=== PATIENT | male | born 1935 | race Caucasian/White ===

== ENCOUNTER → 2016-10-22 | Outpatient (REF) | payer MEDICARE, OTHER | LOC: M SFHCCLAY 10:30 | PROVIDERS: ATTEND Family Medicine | DX: E78.2 Mixed hyperlipidemia (principal); E11.21 Type 2 diabetes mellitus with diabetic nephropathy; Z53.8 Procedure and treatment not carried out for other reasons ==

== ENCOUNTER 2017-03-18 19:31 | Inpatient (IN) | payer MEDICARE, OTHER ==
[~2017-03-18] VITALS: Ht 175.3 cm; Wt 77.1 kg
[2017-03-18] MEDS ORDERED: NS 1,000 ML IV ONE (20:30)
[2017-03-18] MEDS ORDERED: ONDANSETRON 4MG/2ML VIAL (J2405) IV ONE (20:30)
[2017-03-18 20:31] LABS: BASO % 0.8 % (0.0-1.0); EOS # 0.1 K/mm3 (0.0-0.50); EOS % 2.9 % (0.0-3.0); LARGE UNSTAINED CELL # 0.1 K/mm3 (0.0-0.4); LARGE UNSTAINED CELL % 2.1 % (0.0-4.0); LYMPH # 0.9 K/mm3 (1.5-4.5); LYMPH % 27.3 % (24.0-44.0); MEAN CORPUSCULAR HEMOGLOBIN 30.2 pg (27.0-33.0); MEAN CORPUSCULAR HGB CONC 33.1 g/dl (32.0-36.5); MEAN CORPUSCULAR VOLUME 91.3 fl (80.0-96.0); MONO # 0.3 K/mm3 (0.0-0.8); MONO % 8.7 % (0.0-5.0); NEUTROPHILS # 1.9 K/mm3 (1.8-7.7); NEUTROPHILS % 58.1 % (36.0-66.0); PLATELET COUNT, AUTOMATED 171 k/mm3 (150-450); RED CELL DISTRIBUTION WIDTH 13.4 % (11.5-14.5); WHITE BLOOD COUNT 3.2 K/mm3 (4.0-10.0)
[2017-03-18 20:32] LABS: INR 1.06
[2017-03-18 20:43] LABS: ALBUMIN 3.4 GM/DL (3.2-5.2); ALBUMIN/GLOBULIN RATIO 1.26 (1.00-1.93); BILIRUBIN,DIRECT 0.1 MG/DL (0.0-0.2); BILIRUBIN,TOTAL 0.4 MG/DL (0.2-1.0); CALCIUM LEVEL 8.4 MG/DL (8.8-10.2); CREATININE FOR GFR 1.65 MG/DL (0.70-1.30); GLOMERULAR FILTRATION RATE 42.7 (>35); POTASSIUM SERUM 3.8 MEQ/L (3.5-5.1); TOTAL PROTEIN 6.1 GM/DL (6.4-8.2)
--- NOTE | 2017-03-18 21:00 | REPUSA ---
CLINICAL HISTORY: CVA. TECHNIQUE: Multiple axial CT images were obtained through the brain without IV contrast material. COMMENTS: There is normal configuration of sella turcica. There are no intra or extra-axial collections. There is no mass effect or midline shift. There is no evidence of hematoma formation. No hydrocephalus is p resent. The ventricles are symmetrical. No abnormal calcifications are present. There is diffuse age-appropriate cerebellar and cerebral atrophy with proportionally dilated ventricl es and cortical sulci. There are bilateral confluent periventricular and subcortical white matter hypolucencies compatible w ith severe chronic microvascular disease. Otherwise, no significant focal abnormalities are seen either in the posterior fossa or supratentoria l compartment. IMPRESSION: 1. Cerebellar and cerebral atrophy. 2. Chronic microvascular disease. 3. No evidence of acute intracranial pathology. Thank you for your kind referral of this patient.
[2017-03-18] MEDS ORDERED: LISI40TAB PO (21:12)
[2017-03-18] MEDS ORDERED: METF500T PO (21:12)
[2017-03-18] MEDS ORDERED: HYDR12.55 PO (21:12)
[2017-03-18] MEDS ORDERED: ASPI325T PO (21:12)
--- NOTE | 2017-03-18 22:12 | REP ---
Portable chest, single AP view, patient sitting: There are no comparisons. There are no focal infiltrates or effusions. The right hemidiaphragm is mildly elevated compared to the left. Cardiac size is slightly magnified by positioning. Lung hernandez otherwise clear. The elle, mediastinum, and bony thorax unremarkable. Impression: There are no acute cardiopulmonary findings. Signed by Erick Dickey MD 03/18/2017 10:04 P
--- NOTE | 2017-03-19 02:50 | REPUSA ---
CLINICAL HISTORY: Suspected stroke. TECHNIQUE: Three dimensional [id number] angiography is performed of the [place]. The diane dy was performed without IV contrast agent. FINDINGS: The supraclinoid portions of the internal carotid arteries are of normal shape. The normal bifurcation is seen. The middle cerebral arteries are unremarkable in appearance. The posterior circu lation is visualized and shows no evidence of occlusion or aneurysm formation. The basilar tip is see n and shows no aneurysm formation. There is no evidence of beading to suggest vasculitis. IMPRESSION: MRA of the [place] is within normal limits. Thank you for your kind referral of this patient.
--- NOTE | 2017-03-19 02:50 | REPUSA ---
CLINICAL HISTORY: Suspected cerebral ischemia. TECHNIQUE: MRI of the brain was performed utilizing multiple sequences in axial, coronal and sagittal planes without IV contrast material. COMMENTS: Foci of restricted diffusion are noted in the right cerebellar hemisphere suggestive of acute/subacut e ischemia. The sella and parasellar region are unremarkable in appearance. The corpus callosum and cerebellar to nsils are of normal configuration and position. There are no intra or extra- axial collections. There is no mass effect or midline shift. There is no evidence of hematoma formation. There is no hydrocep halus. The visualized arterial structures demonstrate normal-appearing flow voids. The seventh and eighth ne rve bundles are visualized and are unremarkable in appearance. Numerous confluent foci of T2/FLAIR hyperintensity are noted in the bilateral periventricular and sub cortical white matter compatible with severe chronic white matter ischemic changes. Generalized proportionate dilatation of ventricles and sulci is present compatible with age-appropria te parenchymal atrophy. IMPRESSION: 1. Foci of restricted diffusion are noted in the right cerebellar hemisphere suggestive of acute/suba cute ischemia. No associated midline shift or brain herniation. 2. Generalized age-appropriate parenchymal atrophy. 3. Severe chronic white matter microvascular ischemic changes. Thank you for your kind referral of this patient.
[2017-03-19] MEDS ORDERED: TRIC145T PO (03:27)
[2017-03-19] MEDS ORDERED: DOXA1TAB73 PO (03:27)
[2017-03-19] MEDS ORDERED: FISH1000 PO (03:27)
[2017-03-19] MEDS ORDERED: HYDR25TAB PO (03:30)
[2017-03-19] MEDS ORDERED: VITA100066 PO (03:42)
[2017-03-19] MEDS ORDERED: GLUCAGON FOR INJ 1 MG VIAL (J1610) SC PRN (04:15)
[2017-03-19] MEDS ORDERED: DEXTROSE 50% 50 ML SYRINGE IV PRN (04:15)
[2017-03-19] MEDS ORDERED: GLUCOSE 4 GM CHEW TABLET PO PRN (04:15)
[2017-03-19] MEDS: D5W/0.45% SODIUM CHLORIDE 1,000 ML IV SCH ×2 (04:44→13:36)
--- NOTE | 2017-03-19 05:43 | HPE ---
DATE OF ADMISSION: 03/19/2017 PRIMARY CARE PHYSICIAN: Dr. Gusman. CHIEF COMPLAINT: Left-sided weakness, dysarthria. HISTORY OF PRESENT ILLNESS: The patient is an 82-year-old man who lives alone. He was going out for dinner and drinks with his daughter who is an outpatient nurse manager advertising for [employer]. When they arrived at their destination around 6:45 p.m., when exiting the car she noticed that he had been having difficulty with his speech and when standing he was leaning to his side and had left-sided weakness. She also appreciated a left-sided facial droop. It was at that point that she called the ambulance and had him present to the emergency room. At the present time, she tells me that his speech is improving, but he is still having word-finding difficulty and difficulty expressing himself, but said his weakness has resolved and his droop is resolved. At the present time the patient says he feels fine. He says he just came to get checked out and would actually like to go home. Denies chest pain shortness of breath, fevers, chills, nausea, vomiting or diarrhea, or any weakness at this time. However, he does stutter through his words and does have difficulty finding them. PAST MEDICAL HISTORY: 1. Hypertension. 2. Chronic kidney disease. 3. Type 2 diabetes. 4. Hypertension. 5. Dyslipidemia. ALLERGIES: 1. STATINS (ATORVASTATIN, PRAVASTATIN, SIMVASTATIN) - myalgias. 2. NIACIN - myalgias. 3. PENICILLIN and CROSS REACTORS - hives. PAST SURGICAL HISTORY: 1. Appendectomy. 2. Colonoscopy. SOCIAL HISTORY: He lives alone and is independent with activities of daily living (ADLs), and his children visit him in the evenings almost every night, his daughter and sons. FAMILY HISTORY: Noncontributory. REVIEW OF SYSTEMS: Negative other than in history of present illness (HPI). HOME MEDICATIONS: - aspirin 325 mg daily - metformin 500 mg daily - vitamin D 2000 units daily - Tricor 145 mg daily - fish oil 1000 mcg daily - hydrochlorothiazide 25 mg daily - lisinopril 40 mg daily PHYSICAL EXAMINATION: VITAL SIGNS: Temperature 97.8, pulse 62, respiratory rate 20, blood pressure 115/67, oxygen saturation 96% on room air. GENERAL: He is a disheveled, elderly man sitting up in bed. He does not appear to be in any acute distress, but he does have difficulty with word finding. HEENT: He has some conjunctival hemorrhage on the right. Cranial nerves II through XII are grossly intact. He has moist mucous membranes. No elevation of central venous pressure (CVP). CARDIOVASCULAR: S1, S2, appears regular. No distant heart sounds appreciated. RESPIRATORY: Exam is completely clear. ABDOMEN: Exam is benign. EXTREMITIES: No clubbing, cyanosis or edema. NEUROLOGIC: He has 5/5 strength, and neuro exam other than his word finding, appears to be nonfocal. LABORATORY DATA: WBC 3.2, hemoglobin 11.9, hematocrit 35.9, platelet count 171. INR 1.0. Chemistry panel: Sodium 138, potassium 3.8, chloride 104, bicarbonate 24, BUN 24, creatinine 1.6, baseline approximately 1.6. IMAGING: The patient had a CT scan of the head which revealed cerebellar and cerebral atrophy, chronic microvascular disease. No evidence of acute intracranial pathology. He had a chest x-ray that revealed no acute cardiopulmonary findings. MRA of the brain revealed [place] within normal limits. MRI of the brain revealed foci restricted diffusion are noted in the right cerebellar hemisphere, suggestive of acute and subacute ischemia. No associated midline shift or brain herniation. ASSESSMENT AND PLAN: This is an 82-year-old man with an acute right cerebellar cerebrovascular accident (CVA). 1. Acute right cerebellar CVA. The patient's symptoms do appear to be improving quite rapidly at the present time. He normally takes aspirin and Tricor. He may benefit from a neurology consultation, and if they agree, consider switching to Plavix. The patient, unfortunately, is unable to tolerate statins. He is on Tricor. We will check a lipid panel, hemoglobin A1c, and thyroid stimulating hormone (TSH). He will be admitted to the progressive care unit (PCU) for telemetry to rule out any arrhythmias, and an echocardiogram will be completed to rule out any other etiology for embolic phenomenon. We will also check a carotid Duplex. He will receive neurologic checks as well. Given that he is difficulty with word finding and had a facial droop, for the time being I will keep him nothing by mouth and place physical therapy (PT), occupational therapy (OT), and speech therapy evaluations. 2. Hypertension. Will continue hydrochlorothiazide and lisinopril. He is not hypertensive at this time. 3. Anemia. Appears to be somewhat chronic. We will send iron studies. 4. Type 2 diabetes. Will hold his metformin and place him on sliding scale. 5. Vitamin D deficiency. Continue with supplementation. 6. Deep venous thrombosis (DVT) prophylaxis. The patient will be heparin. DISPOSITION: The patient is admitted to the progressive care unit to Dr. De Anda's service, who will continue following the patient at 7 a.m. Consider neurology consultation if felt to be indicated.
[2017-03-19] MEDS: HumaLOG INSULIN (NovoLOG) PER UNIT SC SCH ×3 (05:50→18:00)
--- NOTE | 2017-03-19 05:50 | REPUSA ---
CLINICAL HISTORY: Stroke. TECHNIQUE: Realtime sonographic images were obtained in multiple projections. COMMENTS: Realtime examination demonstrates bilateral atheromatous plaques of the common carotid arteries exten ding to the proximal aspect of the internal and external carotid arteries. Normal peak systolic velocities. Antegrade flow in the vertebral arteries. Arrhythmia was noted. IMPRESSION: Atherosclerosis. No evidence of hemodynamically significant stenosis. Thank you for your kind referral of this patient.
[2017-03-19 06:30] VITALS: BP 119/61
[2017-03-19 06:54] LABS: MEAN CORPUSCULAR HEMOGLOBIN 30.6 pg (27.0-33.0); MEAN CORPUSCULAR HGB CONC 33.9 g/dl (32.0-36.5); MEAN CORPUSCULAR VOLUME 90.2 fl (80.0-96.0); RED CELL DISTRIBUTION WIDTH 13.7 % (11.5-14.5); WHITE BLOOD COUNT 4.5 K/mm3 (4.0-10.0)
[2017-03-19 07:18] LABS: CALCIUM LEVEL 8.2 MG/DL (8.8-10.2); CREATININE FOR GFR 1.59 MG/DL (0.70-1.30); GLOMERULAR FILTRATION RATE 44.6 (>35); POTASSIUM SERUM 3.8 MEQ/L (3.5-5.1)
[2017-03-19 08:00] VITALS: BP 111/60
[2017-03-19] MEDS: HEPARIN SOD (PORCINE) 5000 UNITS/ML VIAL SC SCH ×2 (09:00→21:47)
--- NOTE | 2017-03-19 09:04 | ECGEPIP ---
Stationary ECG Study [facility] - ED Test Date: 2017-03-18 Pat Name: YAKOV WALLS Department: Room: [place] [address] Gender: M Portrait Artist: natalia : 1935 Requested By: THOMAS Reeder Order Number: [id number] Reading MD: Lizzie House Measurements Intervals [place] Rate: 59 P: RI: 0 QRS: -59 QRSD: 176 T: 21 QT: 471 QTc: 467 Interpretive Statements SINUS RHYTHM RIGHT BUNDLE BRANCH BLOCK LEFT ANTERIOR FASCICULAR BLOCK POSSIBLE ANTERIOR MYOCARDIAL INFARCTION, OF INDETERMINATE AGE NO PRIOR FOR COMPARISON Electronically Signed On 03-19-2017 9:04:40 EDT by Lizzie House
[2017-03-19] MEDS: VITAMIN D 1,000 INTERNATIONAL UNITS TABLET PO SCH (09:08)
[2017-03-19] MEDS: OMEGA-3 1050MG CAPSULE PO SCH (09:08)
[2017-03-19] MEDS: hydroCHLOROthiazide 25 MG TAB PO SCH (09:08)
[2017-03-19] MEDS: ASPIRIN 325 MG TAB PO SCH (09:08)
[2017-03-19] MEDS: LISINOPRIL 40 MG TAB PO SCH (09:08)
[2017-03-19] MEDS: FENOFIBRATE 145 MG TAB (TRICOR) PO SCH (09:08)
[2017-03-19 12:00] VITALS: BP 134/66
[2017-03-19 13:29] VITALS: BP 120/68
[2017-03-19 16:00] VITALS: BP 106/51
[2017-03-19 20:18] VITALS: BP 114/58
[2017-03-20 00:40] VITALS: BP 127/70
[2017-03-20] MEDS: D5W/0.45% SODIUM CHLORIDE 1,000 ML IV SCH (05:08)
[2017-03-20 05:09] VITALS: BP 120/72
[2017-03-20 05:53] LABS: MEAN CORPUSCULAR HEMOGLOBIN 30.1 pg (27.0-33.0); MEAN CORPUSCULAR HGB CONC 33.5 g/dl (32.0-36.5); MEAN CORPUSCULAR VOLUME 89.9 fl (80.0-96.0); RED CELL DISTRIBUTION WIDTH 13.5 % (11.5-14.5); WHITE BLOOD COUNT 3.6 K/mm3 (4.0-10.0)
[2017-03-20 06:06] LABS: CALCIUM LEVEL 8.6 MG/DL (8.8-10.2); CREATININE FOR GFR 1.77 MG/DL (0.70-1.30); GLOMERULAR FILTRATION RATE 39.4 (>35)
[2017-03-20 07:30] VITALS: BP 130/76
[2017-03-20] MEDS ORDERED: HumaLOG INSULIN (NovoLOG) PER UNIT SC SCH ×2 (07:30→21:00)
[2017-03-20] MEDS: HEPARIN SOD (PORCINE) 5000 UNITS/ML VIAL SC SCH (08:43)
[2017-03-20] MEDS: hydroCHLOROthiazide 25 MG TAB PO SCH (08:44)
[2017-03-20] MEDS: ASPIRIN 325 MG TAB PO SCH (08:44)
[2017-03-20] MEDS: VITAMIN D 1,000 INTERNATIONAL UNITS TABLET PO SCH (08:44)
[2017-03-20] MEDS: FENOFIBRATE 145 MG TAB (TRICOR) PO SCH (08:44)
[2017-03-20] MEDS: LISINOPRIL 40 MG TAB PO SCH (08:44)
[2017-03-20] MEDS: OMEGA-3 1050MG CAPSULE PO SCH (08:44)
[2017-03-20] MEDS ORDERED: CLOP75TA2 PO (12:55)
[2017-03-20] MEDS ORDERED: ASPI1TAB PO (12:55)
--- NOTE | 2017-03-20 20:51 | DSES ---
DATE OF ADMISSION: 03/19/2017 DATE OF DISCHARGE: 03/20/2017 PRIMARY CARE PHYSICIAN: Dr. Shlomo Gusman HISTORY: This is an 82-year-old male patient who was going out to dinner with his daughter, when he suddenly began to have difficulty with speaking and standing, leaning to one side with left-sided weakness as well as left-sided facial droop. Ambulance was called. He presented to the emergency room. His speech had started to improve, although he had difficulty with word findings and expressing himself. His weakness had resolved as well as his facial droop. Upon evaluation in the emergency room, he underwent CT and MRI of the head, MRI suggesting right acute versus subacute ischemia on the right cerebellar hemisphere. Patient was admitted to the hospital for further management and monitoring. He had been taking aspirin 81 mg daily. This was increased to 325 mg daily. He is on aspirin as well as Tricor, as he does have history of difficulty tolerating statins. He also underwent carotid ultrasound, which was without any hemodynamically significant stenosis. He has been evaluated by physical therapy and occupational therapy who feel as through he is safe. Speech therapy has seen him, and he has tolerated a regular diet with thin liquids. He is eager to return home. His left facial droop and left-sided weakness have resolved. He does still have some difficulty with word finding and speech, and therefore he may benefit from some speech therapy in the outpatient setting, which can be arranged by his primary care provider if the patient and family wish to proceed. He otherwise remained medically stable. DISCHARGE DIAGNOSES: 1. Right cerebellar subacute versus acute ischemia. 2. Severe chronic white matter microvascular ischemic changes. 3. Dyslipidemia. 4. Hypertension. DISCHARGE MEDICATIONS: - aspirin 325 mg daily - vitamin D 2000 units daily - Tricor 145 mg daily - fish oil 1000 mg daily - hydrochlorothiazide 25 mg daily - lisinopril 40 mg daily - metformin 500 mg daily DISCHARGE PLAN: Followup with Dr. Gusman in 1 week. Activity should be as tolerated. Diet should be low cholesterol. Addendum: I clarified with patient's daughter that he has been taking aspirin 325 mg daily at home. I discussed the case with his PCP Dr. Gusman, who agrees that because Mr. Herrera had a CVA while taking aspirin 325 mg, he should be discharged on plavix. He was discharged on plavix 75 mg BID and aspirin 81 mg daily by mouth; aspirin 325 mg was discontinued. (KES) MTDD
--- NOTE | 2017-03-21 12:21 | ECHO ---
DATE OF STUDY: 03/20/2017 REFERRING PHYSICIAN: Dr. Jose King INDICATION: Acute stroke. HEIGHT: 175 cm WEIGHT: 75 kg 2D MEASUREMENTS: Left atrium: 4.5 cm Left ventricle diastole: 6.1 cm Ventricular septum: 1.60 cm Posterior wall: 1.21 cm LVOT: 2.14 cm Aortic root: 4.2 cm Proximal ascending aorta: 3.6 cm Inferior vena cava: 2.2 cm DOPPLER MEASUREMENTS: Very mild aortic regurgitation. Aortic valve velocity: 131 cm/s LVOT velocity: 71.9 cm/s LVOT VTI: 15.8 cm Moderate mitral regurgitation. Mitral E velocity: 91.8 cm/s Mitral A velocity: 65.4 cm/s Mitral deceleration time: 225 ms Mild pulmonic regurgitation. Pulmonary artery systolic pressure: 46 mmHg MITRAL ANNULAR TISSUE DOPPLER: E prime septal: 3.7 cm/s E prime lateral: 4.7 cm/s DESCRIPTION: Rhythm was sinus. Image quality was fair. No pericardial effusion. This is a 2D, M-mode, color flow Doppler, and pulse wave Doppler examination and included mitral annular tissue Doppler. CONCLUSIONS: 1. Mildly dilated left ventricle with eccentric left ventricle hypertrophy and moderate focal hypertrophy of the basal anterior ventricular septum. Severe global left ventricular (LV) hypokinesis. Severe reduction overall LV systolic function. Left ventricular ejection fraction (LVEF) 30% by visual estimate. Grade 2 LV diastolic dysfunction (pseudonormal LV filling pattern). 2. Moderate left atrial dilatation. 3. Mild aortic valve sclerosis. Very mild aortic regurgitation. 4. Mild dilatation of the aortic root at the level of the sinus of Valsalva. 5. Mild mitral annular calcification. Moderate mitral regurgitation. 6. Moderate elevation of pulmonary artery systolic pressure. Dilated inferior vena cava suggestive of elevated central venous pressure. Normal right ventricle size and systolic function. No significant tricuspid valve regurgitation observed. MTDD
== END 2017-03-20 13:23 | disposition home or self-care (01) | DRG 66 ==
LOC: EDBD 19:31 → M ED 21:22 → M ED INP 03-19 04:09 → M PCU 03-19 13:05
PROVIDERS: ADMIT Internal Medicine; ATTEND Family Medicine
DX: I63.541 Cerebral infarction due to unspecified occlusion or stenosis of right cerebellar artery (principal); I12.9 Hypertensive chronic kidney disease with stage 1 through stage 4 chronic kidney disease, or unspecified chronic kidney disease; E55.9 Vitamin D deficiency, unspecified; D64.9 Anemia, unspecified; E11.9 Type 2 diabetes mellitus without complications; R47.89 Other speech disturbances; E78.5 Hyperlipidemia, unspecified; Z88.0 Allergy status to penicillin; Z88.8 Allergy status to other drugs, medicaments and biological substances; Z79.82 Long term (current) use of aspirin; Z79.84 Long term (current) use of oral hypoglycemic drugs; Z79.899 Other long term (current) drug therapy

== ENCOUNTER → 2018-02-12 | Outpatient (REF) | payer MEDICARE, OTHER ==
[2018-02-12 16:33] LABS: HEMATOCRIT 38.2 % (42.0-52.0); MEAN CORPUSCULAR HEMOGLOBIN 29.4 pg (27.0-33.0); MEAN CORPUSCULAR VOLUME 86.4 fl (80.0-96.0); PLATELET COUNT, AUTOMATED 202 10^3/uL (150-450); RED BLOOD COUNT 4.42 10^6/uL (4.30-6.10); RED CELL DISTRIBUTION WIDTH 14.3 % (11.5-14.5); WHITE BLOOD COUNT 4.2 10^3/uL (4.0-10.0)
[2018-02-12 16:35] LABS: APPEARANCE, URINE CLEAR (CLEAR); BACTERIA, URINE AUTO NEGATIVE (NEGATIVE); BILIRUBIN, URINE AUTO NEGATIVE (NEGATIVE); BLOOD, URINE BLOOD NEGATIVE (NEGATIVE); COLOR, URINE YELLOW (YELLOW); GLUCOSE, URINE (UA) AUTO NEGATIVE (NEGATIVE); KETONE, URINE AUTO NEGATIVE (NEGATIVE); LEUKOCYTE ESTERASE, URINE AUTO NEGATIVE (NEGATIVE); MUCUS, URINE SMALL (NEGATIVE); NITRITE, URINE AUTO NEGATIVE (NEGATIVE); PROTEIN, URINE AUTO NEGATIVE (NEGATIVE); RBC, URINE AUTO 0 /HPF (0-3); SPECIFIC GRAVITY URINE AUTO 1.014 (1.002-1.035); SQUAMOUS EPITHELIAL CELL UR AU 0 /HPF (0-6); UROBILINOGEN, URINE AUTO 0.2 mg/dL (0.0-2.0); WBC, URINE AUTO 1 /HPF (0-3)
[2018-02-12 16:51] LABS: VITAMIN B12 LEVEL 230 PG/ML (247-911)
[2018-02-12 16:55] LABS: ALBUMIN 3.8 GM/DL (3.2-5.2); ALBUMIN/GLOBULIN RATIO 1.52 (1.00-1.93); ALKALINE PHOSPHATASE 41 U/L (45-117); ALT/SGPT 12 U/L (12-78); ANION GAP 7 MEQ/L (8-16); AST/SGOT 14 U/L (7-37); BILIRUBIN,TOTAL 0.8 MG/DL (0.2-1.0); BLOOD UREA NITROGEN 25 MG/DL (7-18); CALCIUM LEVEL 9.3 MG/DL (8.8-10.2); CARBON DIOXIDE LEVEL 27 MEQ/L (21-32); CHLORIDE LEVEL 106 MEQ/L (98-107); CREATININE FOR GFR 1.68 MG/DL (0.70-1.30); FREE T4 1.37 NG/DL (0.76-1.46); GLOMERULAR FILTRATION RATE 41.7 (>35); GLUCOSE, FASTING 105 MG/DL (70-100); POTASSIUM SERUM 4.6 MEQ/L (3.5-5.1); SODIUM LEVEL 140 MEQ/L (136-145); TOTAL PROTEIN 6.3 GM/DL (6.4-8.2)
== END ==
LOC: M SFHCCLAY 11:04
DX: F03.90 Unspecified dementia, unspecified severity, without behavioral disturbance, psychotic disturbance, mood disturbance, and anxiety (principal)
CPT/HCPCS: 84443

== ENCOUNTER 2018-03-27 17:43 | Inpatient (IN) | payer MEDICARE, OTHER ==
[2018-03-27 18:15] LABS: BASO % 0.2 % (0.0-1.0); HEMATOCRIT 43.3 % (42.0-52.0); HEMOGLOBIN 15.1 g/dl (13.5-17.5); IMMATURE GRANULOCYTE % 0.3 % (0-3.0); LYMPH # 0.6 10^3/uL (1.5-4.5); LYMPH % 5.5 % (24.0-44.0); MEAN CORPUSCULAR HEMOGLOBIN 29.5 pg (27.0-33.0); MEAN CORPUSCULAR HGB CONC 34.9 g/dl (32.0-36.5); MEAN CORPUSCULAR VOLUME 84.6 fl (80.0-96.0); MONO % 9.8 % (0.0-5.0); NEUTROPHILS # 8.7 10^3/uL (1.8-7.7); NEUTROPHILS % 84.2 % (36.0-66.0); PLATELET COUNT, AUTOMATED 208 10^3/uL (150-450); RED BLOOD COUNT 5.12 10^6/uL (4.30-6.10); RED CELL DISTRIBUTION WIDTH 14.3 % (11.5-14.5); WHITE BLOOD COUNT 10.3 10^3/uL (4.0-10.0)
[2018-03-27] MEDS: NS 1,000 ML IV ×4 (18:15→23:14)
[2018-03-27 18:28] LABS: OSMOLALITY SERUM 292 MOSM/KG (280-301)
[2018-03-27 18:34] LABS: ABG BASE EXCESS -7.5 (-2.0-2.0); ABG HCO3 14.4 MEQ/L (22.0-26.0); ABG O2 SATURATION 99.3 % (95.0-99.0); ABG PARTIAL PRESSURE CO2 21.8 mmHg (35.0-45.0); ABG PARTIAL PRESSURE O2 152.1 mmHg (75.0-100.0); ABG STANDARD HCO3 18.5 MEQ/L (22.0-26.0); ABG pH (ARTERIAL) 7.437 UNITS (7.350-7.450)
[2018-03-27 18:34] LABS: AMMONIA 40 uMOL/L (<32)
[2018-03-27 18:41] LABS: ALBUMIN 3.1 GM/DL (3.2-5.2); ALBUMIN/GLOBULIN RATIO 1.03 (1.00-1.93); ALKALINE PHOSPHATASE 53 U/L (45-117); ALT/SGPT 372 U/L (12-78); ANION GAP 10 MEQ/L (8-16); AST/SGOT 439 U/L (7-37); BILIRUBIN,DIRECT 1.8 MG/DL (0.0-0.2); BLOOD UREA NITROGEN 52 MG/DL (7-18); CALCIUM LEVEL 8.7 MG/DL (8.8-10.2); CARBON DIOXIDE LEVEL 22 MEQ/L (21-32); CHLORIDE LEVEL 99 MEQ/L (98-107); CPK CREATINE PHOSPHOKINASE 183 U/L (39-308); CREATININE FOR GFR 2.78 MG/DL (0.70-1.30); GLOMERULAR FILTRATION RATE 23.3 (>35); GLUCOSE, FASTING 187 MG/DL (70-100); SODIUM LEVEL 131 MEQ/L (136-145); TOTAL PROTEIN 6.1 GM/DL (6.4-8.2)
[2018-03-27 18:43] LABS: LACTIC ACID SEPSIS PROTOCOL 2.7 MMOL/L (0.4-2.0)
[2018-03-27] MEDS: ADENOSINE 6MG/2ML INJECTION (J0153) IV ×2 (18:43→18:47)
[2018-03-27 18:44] LABS: CK-MB VALUE MASS 4.6 NG/ML (<3.6); MB/CK RELATIVE INDEX 2.51 (< OR =4); POTASSIUM SERUM 5.3 MEQ/L (3.5-5.1)
[2018-03-27] MEDS: METOPROLOL 5 MG/5 ML VIAL IV (19:05)
[2018-03-27] MEDS: DIGOXIN INJ 0.5 MG/2 ML AMP (J1160) IV (20:01)
[2018-03-27] MEDS: LevoFLOXacin IV 750 MG in APPROPRIATE DILUENT 1 EA IV (20:51)
[2018-03-27 20:59] LABS: KETONE, URINE AUTO RFX NEGATIVE (NEGATIVE); LEUKOCYTE ESTERASE UR AUTO RFX NEGATIVE (NEGATIVE); MUCUS, URINE RFX SMALL (NEGATIVE); NITRITE, URINE AUTO RFX NEGATIVE (NEGATIVE); RBC, URINE AUTO RFX 2 /HPF (0-3); SPECIFIC GRAVITY UR AUTO RFX 1.017 (1.002-1.035); SQUAM EPITHELIAL CELL UR AURFX 1 /HPF (0-6); WBC, URINE AUTO RFX 2 /HPF (0-3)
[2018-03-27] MEDS: metroNIDAZOLE 500 MG in APPROPRIATE DILUENT 1 EA IV (23:50)
[2018-03-28] MEDS ORDERED: DEXTROSE 50% 50 ML SYRINGE IV (00:15)
[2018-03-28] MEDS ORDERED: GLUCAGON FOR INJ 1 MG VIAL (J1610) SC (00:15)
[2018-03-28] MEDS ORDERED: GLUCOSE 4 GM CHEW TABLET PO (00:15)
[2018-03-28] MEDS: AMIODARONE HCL 150 MG in APPROPRIATE DILUENT 1 EA IV (00:56)
[2018-03-28 03:35] LABS: BASO % 0.1 % (0.0-1.0); HEMATOCRIT 37.4 % (42.0-52.0); IMMATURE GRANULOCYTE % 0.4 % (0-3.0); LYMPH # 0.6 10^3/uL (1.5-4.5); LYMPH % 6.2 % (24.0-44.0); MEAN CORPUSCULAR HEMOGLOBIN 29.1 pg (27.0-33.0); MEAN CORPUSCULAR HGB CONC 34.2 g/dl (32.0-36.5); MONO # 1.2 10^3/uL (0.0-0.8); NEUTROPHILS % 81.3 % (36.0-66.0); PLATELET COUNT, AUTOMATED 161 10^3/uL (150-450); RED CELL DISTRIBUTION WIDTH 14.1 % (11.5-14.5); WHITE BLOOD COUNT 9.9 10^3/uL (4.0-10.0)
[2018-03-28 03:44] LABS: HEMOGLOBIN 12.8 g/dl (13.5-17.5)
[2018-03-28 04:04] LABS: ALBUMIN 2.6 GM/DL (3.2-5.2); ALBUMIN/GLOBULIN RATIO 0.96 (1.00-1.93); ALKALINE PHOSPHATASE 56 U/L (45-117); ALT/SGPT 665 U/L (12-78); ANION GAP 11 MEQ/L (8-16); AST/SGOT 804 U/L (7-37); BILIRUBIN,TOTAL 2.7 MG/DL (0.2-1.0); BLOOD UREA NITROGEN 55 MG/DL (7-18); CALCIUM LEVEL 7.5 MG/DL (8.8-10.2); CARBON DIOXIDE LEVEL 16 MEQ/L (21-32); CHLORIDE LEVEL 106 MEQ/L (98-107); CREATININE FOR GFR 2.44 MG/DL (0.70-1.30); GLOMERULAR FILTRATION RATE 27.1 (>35); GLUCOSE, FASTING 153 MG/DL (70-100); SODIUM LEVEL 133 MEQ/L (136-145); TOTAL PROTEIN 5.3 GM/DL (6.4-8.2)
[2018-03-28] MEDS: HEPARIN SOD (PORCINE) 5000 UNITS/ML VIAL SC (05:00)
[2018-03-28] MEDS: NS 1,000 ML IV ×2 (05:01→10:51)
[2018-03-28] MEDS: metroNIDAZOLE 500 MG in APPROPRIATE DILUENT 1 EA IV ×3 (07:29→23:33)
[2018-03-28] MEDS: VITAMIN D 1,000 INTERNATIONAL UNITS TABLET PO (08:37)
[2018-03-28] MEDS: OMEGA-3 1050MG CAPSULE PO (08:37)
[2018-03-28] MEDS: CLOPIDOGREL 75 MG TAB PO (08:38)
[2018-03-28] MEDS: HumaLOG INSULIN (NovoLOG) PER UNIT SC ×4 (08:39→20:39)
[2018-03-28] MEDS: DIGOXIN INJ 0.5 MG/2 ML AMP (J1160) IV ×3 (10:51→22:05)
[2018-03-28 11:42] LABS: BEDSIDE GLUCOSE 150 MG/DL (83-110)
[2018-03-28] MEDS: LACTULOSE 20 GM/30 ML SYRUP UD PO ×3 (12:24→20:42)
[2018-03-28 12:36] LABS: NT-PRO BNP 32040 PG/ML (<450)
[2018-03-28] MEDS: METOPROLOL SUCC *XL* 12.5MG PER 1/2 TAB (TopROL *XL*) PO (15:21)
[2018-03-28 17:14] LABS: BEDSIDE GLUCOSE 105 MG/DL (83-110)
[2018-03-28] MEDS: RIVAROXABAN 15 MG TAB (XARELTO) PO (17:53)
[2018-03-28 20:17] LABS: BEDSIDE GLUCOSE 101 MG/DL (83-110)
[2018-03-28] MEDS: METOPROLOL SUCC *XL* 25MG TAB (TopROL *XL*) PO (22:05)
[2018-03-29] MEDS: HumaLOG INSULIN (NovoLOG) PER UNIT SC ×4 (07:30→20:51)
[2018-03-29 07:38] LABS: HEMATOCRIT 40.3 % (42.0-52.0); HEMOGLOBIN 13.5 g/dl (13.5-17.5); MEAN CORPUSCULAR HEMOGLOBIN 28.9 pg (27.0-33.0); MEAN CORPUSCULAR HGB CONC 33.5 g/dl (32.0-36.5); MEAN CORPUSCULAR VOLUME 86.3 fl (80.0-96.0); PLATELET COUNT, AUTOMATED 151 10^3/uL (150-450); RED BLOOD COUNT 4.67 10^6/uL (4.30-6.10); RED CELL DISTRIBUTION WIDTH 14.2 % (11.5-14.5); WHITE BLOOD COUNT 8.2 10^3/uL (4.0-10.0)
[2018-03-29 08:05] LABS: ALBUMIN 2.6 GM/DL (3.2-5.2); ALKALINE PHOSPHATASE 64 U/L (45-117); ALT/SGPT 453 U/L (12-78); ANION GAP 10 MEQ/L (8-16); AST/SGOT 244 U/L (7-37); BILIRUBIN,TOTAL 1.5 MG/DL (0.2-1.0); BLOOD UREA NITROGEN 66 MG/DL (7-18); CALCIUM LEVEL 7.9 MG/DL (8.8-10.2); CARBON DIOXIDE LEVEL 21 MEQ/L (21-32); CHLORIDE LEVEL 103 MEQ/L (98-107); CREATININE FOR GFR 2.35 MG/DL (0.70-1.30); GLOMERULAR FILTRATION RATE 28.3 (>35); GLUCOSE, FASTING 106 MG/DL (70-100); MAGNESIUM LEVEL 1.9 MG/DL (1.8-2.4); POTASSIUM SERUM 4.6 MEQ/L (3.5-5.1); SODIUM LEVEL 134 MEQ/L (136-145); TOTAL PROTEIN 5.2 GM/DL (6.4-8.2)
[2018-03-29 08:05] LABS: BEDSIDE GLUCOSE 103 MG/DL (83-110)
[2018-03-29] MEDS: metroNIDAZOLE 500 MG in APPROPRIATE DILUENT 1 EA IV ×2 (08:08→16:19)
[2018-03-29] MEDS: LACTULOSE 20 GM/30 ML SYRUP UD PO ×3 (08:41→20:51)
[2018-03-29] MEDS: DIGOXIN 0.0625MG PER 1/2TABLET PO (08:42)
[2018-03-29] MEDS: VITAMIN D 1,000 INTERNATIONAL UNITS TABLET PO (08:42)
[2018-03-29] MEDS: METOPROLOL SUCC *XL* 25MG TAB (TopROL *XL*) PO ×2 (08:43→14:53)
[2018-03-29] MEDS ORDERED: METOPROLOL SUCC *XL* 25MG TAB (TopROL *XL*) PO (09:00)
[2018-03-29] MEDS: FUROSEMIDE 40 MG/4 ML VIAL (J1940) IV (09:26)
[2018-03-29 12:54] LABS: BEDSIDE GLUCOSE 150 MG/DL (83-110)
[2018-03-29] MEDS: TORSEMIDE 10 MG TABLET PO (16:20)
[2018-03-29 17:17] LABS: BEDSIDE GLUCOSE 139 MG/DL (83-110)
[2018-03-29] MEDS: RIVAROXABAN 15 MG TAB (XARELTO) PO (17:32)
[2018-03-29 20:53] LABS: BEDSIDE GLUCOSE 144 MG/DL (83-110)
[2018-03-29] MEDS: LevoFLOXacin IV 250 MG in APPROPRIATE DILUENT 1 EA IV (20:56)
[2018-03-29] MEDS: MULTIVITAMIN -ADULT INJECTION 10 ML, THIAMINE INJection 100 MG, FOLIC ACID 1 MG in NS 1... IV (22:23)
[2018-03-29] MEDS: THIAMINE 100 MG TAB PO (23:08)
[2018-03-29] MEDS: OXAZEPAM 15 MG CAP PO (23:08)
[2018-03-30] MEDS: metroNIDAZOLE 500 MG in APPROPRIATE DILUENT 1 EA IV ×4 (00:34→23:43)
[2018-03-30 05:08] LABS: HEMATOCRIT 40.7 % (42.0-52.0); HEMOGLOBIN 14.1 g/dl (13.5-17.5); MEAN CORPUSCULAR HGB CONC 34.6 g/dl (32.0-36.5); MEAN CORPUSCULAR VOLUME 83.7 fl (80.0-96.0); PLATELET COUNT, AUTOMATED 182 10^3/uL (150-450); RED BLOOD COUNT 4.86 10^6/uL (4.30-6.10); RED CELL DISTRIBUTION WIDTH 13.8 % (11.5-14.5); WHITE BLOOD COUNT 7.4 10^3/uL (4.0-10.0)
[2018-03-30 05:14] LABS: AMMONIA 21 uMOL/L (<32)
[2018-03-30 05:20] LABS: ALKALINE PHOSPHATASE 54 U/L (45-117); ALT/SGPT 328 U/L (12-78); AST/SGOT 127 U/L (7-37); BILIRUBIN,TOTAL 1.1 MG/DL (0.2-1.0); BLOOD UREA NITROGEN 64 MG/DL (7-18); CALCIUM LEVEL 7.8 MG/DL (8.8-10.2); CARBON DIOXIDE LEVEL 20 MEQ/L (21-32); CHLORIDE LEVEL 105 MEQ/L (98-107); CREATININE FOR GFR 2.23 MG/DL (0.70-1.30); GLUCOSE, FASTING 120 MG/DL (70-100)
[2018-03-30 05:29] LABS: ANION GAP 12 MEQ/L (8-16); POTASSIUM SERUM 3.7 MEQ/L (3.5-5.1); SODIUM LEVEL 137 MEQ/L (136-145)
[2018-03-30 07:41] LABS: ALBUMIN 2.3 GM/DL (3.2-5.2); ALBUMIN/GLOBULIN RATIO 0.85 (1.00-1.93)
[2018-03-30] MEDS: HumaLOG INSULIN (NovoLOG) PER UNIT SC ×4 (07:56→20:43)
[2018-03-30] MEDS: LACTULOSE 20 GM/30 ML SYRUP UD PO (08:13)
[2018-03-30] MEDS: TORSEMIDE 10 MG TABLET PO (08:14)
[2018-03-30] MEDS: DIGOXIN 0.0625MG PER 1/2TABLET PO (08:15)
[2018-03-30] MEDS: METOPROLOL SUCC (TopROL XL) 50MG **XL** TAB PO ×2 (08:20→20:45)
[2018-03-30] MEDS: THIAMINE 100 MG TAB PO (08:21)
[2018-03-30] MEDS: VITAMIN D 1,000 INTERNATIONAL UNITS TABLET PO (08:21)
[2018-03-30 11:35] LABS: BEDSIDE GLUCOSE 159 MG/DL (83-110)
[2018-03-30] MEDS: TORSEMIDE 20 MG TAB PO (16:49)
[2018-03-30 17:07] LABS: BEDSIDE GLUCOSE 98 MG/DL (83-110)
[2018-03-30] MEDS: RIVAROXABAN 15 MG TAB (XARELTO) PO (17:34)
[2018-03-30 20:45] LABS: BEDSIDE GLUCOSE 134 MG/DL (83-110)
[2018-03-30] MEDS ORDERED: SLF 3 ML SYR IV (22:15)
[2018-03-30] MEDS: OXAZEPAM 15 MG CAP PO (23:44)
[2018-03-30] MEDS: ACETAMINOPHEN TAB 650MG DOSE (2X325MG) PO (23:44)
[2018-03-31 05:46] LABS: BASO % 0.3 % (0.0-1.0); EOS # 0.1 10^3/uL (0.0-0.50); EOS % 0.8 % (0.0-3.0); HEMATOCRIT 42.8 % (42.0-52.0); HEMOGLOBIN 14.7 g/dl (13.5-17.5); IMMATURE GRANULOCYTE % 0.3 % (0-3.0); LYMPH # 0.7 10^3/uL (1.5-4.5); LYMPH % 11.8 % (24.0-44.0); MEAN CORPUSCULAR HEMOGLOBIN 28.8 pg (27.0-33.0); MEAN CORPUSCULAR HGB CONC 34.3 g/dl (32.0-36.5); MEAN CORPUSCULAR VOLUME 83.9 fl (80.0-96.0); MONO # 0.9 10^3/uL (0.0-0.8); MONO % 14.6 % (0.0-5.0); NEUTROPHILS # 4.5 10^3/uL (1.8-7.7); NEUTROPHILS % 72.2 % (36.0-66.0); PLATELET COUNT, AUTOMATED 209 10^3/uL (150-450); RED CELL DISTRIBUTION WIDTH 13.8 % (11.5-14.5); WHITE BLOOD COUNT 6.2 10^3/uL (4.0-10.0)
[2018-03-31] MEDS: SLF 3 ML SYR IV ×3 (06:00→20:56)
[2018-03-31 06:12] LABS: ALBUMIN 2.6 GM/DL (3.2-5.2); ALBUMIN/GLOBULIN RATIO 0.96 (1.00-1.93); ALKALINE PHOSPHATASE 50 U/L (45-117); ALT/SGPT 298 U/L (12-78); ANION GAP 10 MEQ/L (8-16); AST/SGOT 135 U/L (7-37); BILIRUBIN,TOTAL 1.2 MG/DL (0.2-1.0); BLOOD UREA NITROGEN 55 MG/DL (7-18); CARBON DIOXIDE LEVEL 31 MEQ/L (21-32); CHLORIDE LEVEL 100 MEQ/L (98-107); CREATININE FOR GFR 2.08 MG/DL (0.70-1.30); GLOMERULAR FILTRATION RATE 32.6 (>35); GLUCOSE, FASTING 124 MG/DL (70-100); POTASSIUM SERUM 3.3 MEQ/L (3.5-5.1); SODIUM LEVEL 141 MEQ/L (136-145); TOTAL PROTEIN 5.3 GM/DL (6.4-8.2)
[2018-03-31] MEDS: POTASSIUM CHLORIDE 10% LIQ 20 MEQ/15 ML UDC PO (06:57)
[2018-03-31] MEDS: HumaLOG INSULIN (NovoLOG) PER UNIT SC (09:25)
[2018-03-31] MEDS: metroNIDAZOLE 500 MG in APPROPRIATE DILUENT 1 EA IV ×3 (09:25→23:37)
[2018-03-31] MEDS: DIGOXIN 0.0625MG PER 1/2TABLET PO (09:26)
[2018-03-31] MEDS: VITAMIN D 1,000 INTERNATIONAL UNITS TABLET PO (09:26)
[2018-03-31] MEDS: THIAMINE 100 MG TAB PO (09:26)
[2018-03-31] MEDS: TORSEMIDE 20 MG TAB PO (09:26)
[2018-03-31] MEDS: METOPROLOL SUCC (TopROL XL) 50MG **XL** TAB PO ×2 (09:26→20:57)
[2018-03-31 11:24] LABS: INR 3.63; PROTHROMBIN TIME 37.9 SECONDS (12.4-14.5)
[2018-03-31 11:58] LABS: VITAMIN B12 LEVEL 1387 PG/ML (247-911)
[2018-03-31] MEDS: RIVAROXABAN 15 MG TAB (XARELTO) PO (18:16)
[2018-03-31] MEDS: LevoFLOXacin IV 250 MG in APPROPRIATE DILUENT 1 EA IV (20:54)
[2018-04-01] MEDS: SLF 3 ML SYR IV ×3 (05:15→22:35)
[2018-04-01 05:49] LABS: ALBUMIN 2.5 GM/DL (3.2-5.2); ALBUMIN/GLOBULIN RATIO 0.96 (1.00-1.93); ALKALINE PHOSPHATASE 48 U/L (45-117); ALT/SGPT 257 U/L (12-78); ANION GAP 9 MEQ/L (8-16); AST/SGOT 122 U/L (7-37); BILIRUBIN,TOTAL 1.3 MG/DL (0.2-1.0); BLOOD UREA NITROGEN 47 MG/DL (7-18); CALCIUM LEVEL 8.2 MG/DL (8.8-10.2); CARBON DIOXIDE LEVEL 31 MEQ/L (21-32); CHLORIDE LEVEL 101 MEQ/L (98-107); CREATININE FOR GFR 1.85 MG/DL (0.70-1.30); GLOMERULAR FILTRATION RATE 37.4 (>35); GLUCOSE, FASTING 134 MG/DL (70-100); MAGNESIUM LEVEL 1.5 MG/DL (1.8-2.4); POTASSIUM SERUM 3.2 MEQ/L (3.5-5.1); SODIUM LEVEL 141 MEQ/L (136-145); TOTAL PROTEIN 5.1 GM/DL (6.4-8.2)
[2018-04-01] MEDS ORDERED: POTASSIUM CHLORIDE 10 MEQ SR TABLET PO (09:00)
[2018-04-01] MEDS: metroNIDAZOLE 500 MG in APPROPRIATE DILUENT 1 EA IV (09:04)
[2018-04-01] MEDS: THIAMINE 100 MG TAB PO (09:05)
[2018-04-01] MEDS: DIGOXIN 0.0625MG PER 1/2TABLET PO (09:05)
[2018-04-01] MEDS: METOPROLOL SUCC (TopROL XL) 50MG **XL** TAB PO ×2 (09:05→20:04)
[2018-04-01] MEDS: VITAMIN D 1,000 INTERNATIONAL UNITS TABLET PO (09:05)
[2018-04-01] MEDS ORDERED: POTASSIUM CHLORIDE 10% LIQ 20 MEQ/15 ML UDC As Ordered (09:48)
[2018-04-01] MEDS: POTASSIUM CHLORIDE 10% LIQ 20 MEQ/15 ML UDC PO (09:50)
[2018-04-01] MEDS: MAG SULF 1GM/100ML (MAG RUN) 1 GM in APPROPRIATE DILUENT 1 EA IV ×3 (10:02→17:05)
[2018-04-01] MEDS: metroNIDAZOLE (FLAGYL) 500 MG TAB PO ×2 (15:30→22:35)
[2018-04-01] MEDS: TORSEMIDE 5MG TABLET PO (17:05)
[2018-04-01] MEDS: RIVAROXABAN 15 MG TAB (XARELTO) PO (17:45)
[2018-04-01] MEDS: ACETAMINOPHEN TAB 650MG DOSE (2X325MG) PO (20:04)
[2018-04-01] MEDS: ENTRESTO 24-26MG TABLET (SACUBITRIL/VALSARTAN) PO (20:04)
[2018-04-02] MEDS: metroNIDAZOLE (FLAGYL) 500 MG TAB PO ×3 (05:00→21:02)
[2018-04-02] MEDS: SLF 3 ML SYR IV ×3 (05:00→21:04)
[2018-04-02] MEDS: LevoFLOXacin 250 MG TABLET PO (05:00)
[2018-04-02 05:51] LABS: ALBUMIN 2.6 GM/DL (3.2-5.2); ALBUMIN/GLOBULIN RATIO 0.93 (1.00-1.93); ALKALINE PHOSPHATASE 46 U/L (45-117); ALT/SGPT 213 U/L (12-78); ANION GAP 8 MEQ/L (8-16); AST/SGOT 89 U/L (7-37); BILIRUBIN,TOTAL 1.5 MG/DL (0.2-1.0); BLOOD UREA NITROGEN 41 MG/DL (7-18); CALCIUM LEVEL 8.3 MG/DL (8.8-10.2); CARBON DIOXIDE LEVEL 35 MEQ/L (21-32); CHLORIDE LEVEL 97 MEQ/L (98-107); CREATININE FOR GFR 1.73 MG/DL (0.70-1.30); GLOMERULAR FILTRATION RATE 40.4 (>35); GLUCOSE, FASTING 137 MG/DL (70-100); MAGNESIUM LEVEL 1.9 MG/DL (1.8-2.4); POTASSIUM SERUM 3.1 MEQ/L (3.5-5.1); SODIUM LEVEL 140 MEQ/L (136-145); TOTAL PROTEIN 5.4 GM/DL (6.4-8.2)
[2018-04-02] MEDS: ENTRESTO 24-26MG TABLET (SACUBITRIL/VALSARTAN) PO ×2 (09:00→20:53)
[2018-04-02] MEDS: DIGOXIN 0.0625MG PER 1/2TABLET PO (09:00)
[2018-04-02] MEDS ORDERED: POTASSIUM CHLORIDE 10% LIQ 20 MEQ/15 ML UDC PO (09:00)
[2018-04-02] MEDS: POTASSIUM CHLORIDE 10 MEQ SR TABLET PO ×4 (09:09→20:50)
[2018-04-02] MEDS: METOPROLOL SUCC (TopROL XL) 50MG **XL** TAB PO ×2 (09:17→20:53)
[2018-04-02] MEDS: THIAMINE 100 MG TAB PO (09:17)
[2018-04-02] MEDS: VITAMIN D 1,000 INTERNATIONAL UNITS TABLET PO (09:17)
[2018-04-02 14:39] LABS: AMMONIA 16 uMOL/L (<32)
[2018-04-02 14:50] LABS: HEPATITIS B SURFACE ANTIBODY NEGATIVE (POSITIVE)
[2018-04-02 15:01] LABS: HEPATITIS B SURFACE ANTIGEN NEGATIVE (NEGATIVE)
[2018-04-02 15:28] LABS: HEPATITIS C VIRUS ABY INDEX < 0.0 INDEX (<0.8)
[2018-04-02 15:29] LABS: HEPATITIS B CORE ANTIBODY IGM NEGATIVE (NEGATIVE)
[2018-04-02 15:30] LABS: HEPATITIS A ANTIBODY IGM NEGATIVE (NEGATIVE)
[2018-04-02] MEDS: RIVAROXABAN 15 MG TAB (XARELTO) PO (17:53)
[2018-04-03 04:54] LABS: ALBUMIN 2.8 GM/DL (3.2-5.2); ALKALINE PHOSPHATASE 47 U/L (45-117); ALT/SGPT 184 U/L (12-78); ANION GAP 6 MEQ/L (8-16); AST/SGOT 68 U/L (7-37); BILIRUBIN,TOTAL 1.4 MG/DL (0.2-1.0); BLOOD UREA NITROGEN 40 MG/DL (7-18); CALCIUM LEVEL 8.7 MG/DL (8.8-10.2); CARBON DIOXIDE LEVEL 36 MEQ/L (21-32); CHLORIDE LEVEL 99 MEQ/L (98-107); CREATININE FOR GFR 1.61 MG/DL (0.70-1.30); GLOMERULAR FILTRATION RATE 43.8 (>35); GLUCOSE, FASTING 146 MG/DL (70-100); POTASSIUM SERUM 4.4 MEQ/L (3.5-5.1); SODIUM LEVEL 141 MEQ/L (136-145); TOTAL PROTEIN 5.6 GM/DL (6.4-8.2)
[2018-04-03] MEDS: metroNIDAZOLE (FLAGYL) 500 MG TAB PO ×2 (05:02→14:58)
[2018-04-03] MEDS: LevoFLOXacin 250 MG TABLET PO (05:02)
[2018-04-03] MEDS: SLF 3 ML SYR IV ×3 (06:00→21:50)
[2018-04-03] MEDS: THIAMINE 100 MG TAB PO (09:09)
[2018-04-03] MEDS: DIGOXIN 0.0625MG PER 1/2TABLET PO (09:10)
[2018-04-03] MEDS: POTASSIUM CHLORIDE 10 MEQ SR TABLET PO (09:11)
[2018-04-03] MEDS: VITAMIN D 1,000 INTERNATIONAL UNITS TABLET PO (09:12)
[2018-04-03] MEDS: ENTRESTO 24-26MG TABLET (SACUBITRIL/VALSARTAN) PO ×2 (09:12→21:46)
[2018-04-03] MEDS: METOPROLOL SUCC (TopROL XL) 50MG **XL** TAB PO ×2 (10:20→21:47)
[2018-04-03 17:40] LABS: INR 3.09; PARTIAL THROMBOPLASTIN TIME 42.2 SECONDS (26.8-37.9); PROTHROMBIN TIME 33.3 SECONDS (12.4-14.5)
[2018-04-03] MEDS: RIVAROXABAN 15 MG TAB (XARELTO) PO (18:15)
[2018-04-04 00:06] LABS: ANTINUCLEAR ANTIBODIES DIRECT Negative (Negative); LIVER-KIDNEY MICROSOMAL ABY 0.5 Units (0.0-20.0)
[2018-04-04 00:06] LABS: ANTI-SMOOTH MUSCLE ANTIBODY 3 Units (0-19)
[2018-04-04] MEDS: SLF 3 ML SYR IV ×3 (06:08→21:52)
[2018-04-04 06:10] LABS: HEMATOCRIT 44.7 % (42.0-52.0); HEMOGLOBIN 15.3 g/dl (13.5-17.5); MEAN CORPUSCULAR HGB CONC 34.2 g/dl (32.0-36.5); MEAN CORPUSCULAR VOLUME 84.7 fl (80.0-96.0); PLATELET COUNT, AUTOMATED 217 10^3/uL (150-450); RED BLOOD COUNT 5.28 10^6/uL (4.30-6.10); RED CELL DISTRIBUTION WIDTH 14.4 % (11.5-14.5); WHITE BLOOD COUNT 7.5 10^3/uL (4.0-10.0)
[2018-04-04 06:41] LABS: ALBUMIN 2.6 GM/DL (3.2-5.2); ALBUMIN/GLOBULIN RATIO 0.96 (1.00-1.93); ALKALINE PHOSPHATASE 43 U/L (45-117); ALT/SGPT 139 U/L (12-78); ANION GAP 6 MEQ/L (8-16); AST/SGOT 50 U/L (7-37); BILIRUBIN,TOTAL 1.2 MG/DL (0.2-1.0); BLOOD UREA NITROGEN 44 MG/DL (7-18); CALCIUM LEVEL 8.9 MG/DL (8.8-10.2); CARBON DIOXIDE LEVEL 35 MEQ/L (21-32); CHLORIDE LEVEL 101 MEQ/L (98-107); CREATININE FOR GFR 1.71 MG/DL (0.70-1.30); GLOMERULAR FILTRATION RATE 40.9 (>35); GLUCOSE, FASTING 148 MG/DL (70-100); SODIUM LEVEL 142 MEQ/L (136-145); TOTAL PROTEIN 5.3 GM/DL (6.4-8.2)
[2018-04-04] MEDS: VITAMIN D 1,000 INTERNATIONAL UNITS TABLET PO (09:27)
[2018-04-04] MEDS: THIAMINE 100 MG TAB PO (09:27)
[2018-04-04] MEDS: DIGOXIN 0.0625MG PER 1/2TABLET PO (09:27)
[2018-04-04] MEDS: ENTRESTO 24-26MG TABLET (SACUBITRIL/VALSARTAN) PO (09:32)
[2018-04-04] MEDS: METOPROLOL SUCC (TopROL XL) 50MG **XL** TAB PO ×2 (09:35→21:52)
[2018-04-05] MEDS: SLF 3 ML SYR IV ×3 (06:27→21:52)
[2018-04-05 07:42] LABS: ALBUMIN 2.5 GM/DL (3.2-5.2); ALBUMIN/GLOBULIN RATIO 0.96 (1.00-1.93); ALKALINE PHOSPHATASE 42 U/L (45-117); ALT/SGPT 105 U/L (12-78); ANION GAP 5 MEQ/L (8-16); AST/SGOT 32 U/L (7-37); BILIRUBIN,TOTAL 1.3 MG/DL (0.2-1.0); BLOOD UREA NITROGEN 43 MG/DL (7-18); CALCIUM LEVEL 8.6 MG/DL (8.8-10.2); CARBON DIOXIDE LEVEL 32 MEQ/L (21-32); CHLORIDE LEVEL 101 MEQ/L (98-107); DIGOXIN LEVEL 0.9 NG/ML (0.5-2.0); GLOMERULAR FILTRATION RATE 44.2 (>35); GLUCOSE, FASTING 134 MG/DL (70-100); SODIUM LEVEL 138 MEQ/L (136-145); TOTAL PROTEIN 5.1 GM/DL (6.4-8.2)
[2018-04-05] MEDS: METOPROLOL SUCC (TopROL XL) 50MG **XL** TAB PO (09:00)
[2018-04-05] MEDS: THIAMINE 100 MG TAB PO (09:27)
[2018-04-05] MEDS: VITAMIN D 1,000 INTERNATIONAL UNITS TABLET PO (09:27)
[2018-04-05] MEDS: DIGOXIN 0.0625MG PER 1/2TABLET PO (09:31)
[2018-04-05] MEDS: TAMSULOSIN 0.4 MG CAP PO (17:12)
[2018-04-06] MEDS: BISOPROLOL FUM 2.5 MG PER 1/2TAB PO (09:10)
[2018-04-06] MEDS: VITAMIN D 1,000 INTERNATIONAL UNITS TABLET PO (09:11)
[2018-04-06] MEDS: TAMSULOSIN 0.4 MG CAP PO (09:11)
[2018-04-06] MEDS: DIGOXIN 0.0625MG PER 1/2TABLET PO (09:11)
[2018-04-06] MEDS: THIAMINE 100 MG TAB PO (09:11)
[2018-04-06 15:33] LABS: ANION GAP 8 MEQ/L (8-16); BLOOD UREA NITROGEN 42 MG/DL (7-18); CALCIUM LEVEL 8.5 MG/DL (8.8-10.2); CARBON DIOXIDE LEVEL 32 MEQ/L (21-32); CHLORIDE LEVEL 99 MEQ/L (98-107); CREATININE FOR GFR 1.88 MG/DL (0.70-1.30); GLOMERULAR FILTRATION RATE 36.7 (>35); GLUCOSE, FASTING 181 MG/DL (70-100); POTASSIUM SERUM 4.7 MEQ/L (3.5-5.1); SODIUM LEVEL 139 MEQ/L (136-145)
[2018-04-06] MEDS ORDERED: RIVAROXABAN 15 MG TAB (XARELTO) PO (18:00)
[2018-04-07 06:21] LABS: INR 1.21; PROTHROMBIN TIME 15.5 SECONDS (12.4-14.5)
[2018-04-07] MEDS: DIGOXIN 0.0625MG PER 1/2TABLET PO (09:10)
[2018-04-07] MEDS: TAMSULOSIN 0.4 MG CAP PO (09:10)
[2018-04-07] MEDS: VITAMIN D 1,000 INTERNATIONAL UNITS TABLET PO (09:10)
[2018-04-07] MEDS: THIAMINE 100 MG TAB PO (09:10)
[2018-04-07] MEDS ORDERED: RIVAROXABAN 10 MG TAB (XARELTO) PO (18:00)
== END 2018-04-07 13:00 | DRG 291 ==
LOC: M PCU 03-30 21:26 → M MSPAV 04-03 16:56 → M ICU 03-28 00:08 → M ED 17:43 → M ED INP 22:03
DX: I13.0 Hypertensive heart and chronic kidney disease with heart failure and stage 1 through stage 4 chronic kidney disease, or unspecified chronic kidney disease (principal); I50.43 Acute on chronic combined systolic (congestive) and diastolic (congestive) heart failure; I48.1 Persistent atrial fibrillation; E87.1 Hypo-osmolality and hyponatremia; N18.4 Chronic kidney disease, stage 4 (severe); I45.2 Bifascicular block; I47.2 Ventricular tachycardia; I42.0 Dilated cardiomyopathy; F03.90 Unspecified dementia, unspecified severity, without behavioral disturbance, psychotic disturbance, mood disturbance, and anxiety; Z51.5 Encounter for palliative care; Z66 Do not resuscitate; I34.0 Nonrheumatic mitral (valve) insufficiency; E78.5 Hyperlipidemia, unspecified; K76.0 Fatty (change of) liver, not elsewhere classified; I27.81 Cor pulmonale (chronic); E87.6 Hypokalemia; N28.89 Other specified disorders of kidney and ureter; E11.9 Type 2 diabetes mellitus without complications; R74.0 Nonspecific elevation of levels of transaminase and lactic acid dehydrogenase [LDH]; Z79.84 Long term (current) use of oral hypoglycemic drugs; Z79.899 Other long term (current) drug therapy; Z88.0 Allergy status to penicillin; Z88.8 Allergy status to other drugs, medicaments and biological substances; Z86.73 Personal history of transient ischemic attack (TIA), and cerebral infarction without residual deficits